=== PATIENT | male | born 1995 | race Caucasian/White ===

== ENCOUNTER 2019-02-09 06:01 | Day surgery (SDC) | payer BC, SELFPAY ==
--- NOTE | 2019-02-08 17:46 | HP.PCM_ITS ---
History and Physical Date of Admission: 02/09/19 Patient returns, 23-year-old male who is trying to conceive child with his partner. He was found to have significant varicocele's in the left testicle. He has significantly a large varicocele the left testicle. He underwent a semen analysis which demonstrated good sperm count with .2 million sperm but poor morphology. Today we talked about the possibility of proceeding with varicocele ectomy to improve his sperm quality which may improve his chances of spontaneous dignity with his . The other option discussed was seen a fertility specialist. 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 Smoking cessation counseling was provided. Does not use smokeless tobacco. Has never drank. Does not use drugs. Drinks 4+ caffeinated drinks per day. Has not had a blood transfusion. 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 - BMI Counseling was provided. PHYSICAL EXAMINATION: Scrotum: No lesions. No edema. No cysts. No warts. Epididymides: Right: no spermatocele, no masses, no cysts, no tenderness, no induration, no enlargement. Left: no spermatocele, no masses, no cysts, no tenderness, no induration, no enlargement. Testes: Lg varicocele - Gr III left testis. No tenderness, no swelling, no enlargement left testis. No tenderness, no swelling, no enlargement right testis. Normal location left testis. Normal location right testis. No mass, no cyst, no hydrocele left testis. No mass, no cyst, no varicocele, no hydrocele right testis. Urethral Meatus: Normal size. No lesion, no wart, no discharge, no polyp. Normal location. Penis: Circumcised, no warts, no cracks. No dorsal Peyronie's plaques, no left corporal Peyronie's plaques, no right corporal Peyronie's plaques, no scarring, no warts. No balanitis, no meatal stenosis. MULTI-SYSTEM PHYSICAL EXAMINATION: Constitutional: Well-nourished. No physical deformities. Normally developed. Good grooming. Neurologic / Psychiatric: Oriented to time, oriented to place, oriented to person. No depression, no anxiety, no agitation. Gastrointestinal: No mass, no tenderness, no rigidity, non obese abdomen. PAST DATA REVIEWED: Source Of History: Patient PROCEDURES: None ASSESSMENT: ICD-10 Details 1 : Scrotal varices - I86.1 PLAN: Letter(s): Created for Patient: Clinical Summary Notes: 23-year-old male with poor morphology on sperm count good sperm number he does have a very large left varicocele, we talked about the data supporting doing a varicocele ectomy and the possibility that this may improve his chances of conceiving child naturally. He's willing to proceed with a varicocelectomy, understands this may fail and he may need to proceed with more advanced fertility options. He scheduled for varicocelectomy all his questions were answered.
[2019-02-09] VITALS (9 sets, daily range): BP systolic 85–113; BP diastolic 51–67; PULSE 16–56; RESP 16; TEMP 36.4–36.8; O2SAT 95–100; BMI 23.6
[2019-02-09] MEDS: Cefazolin 2 GM in 0.9% Normal Saline 100 ML IV (07:32)
[2019-02-09] MEDS: Bupivacaine Mpf 0.5% 30 ML VIAL (08:40)
--- NOTE | 2019-02-09 08:53 | OP.PCM_ITS ---
Report of Operation Date of Procedure: 02/09/19 Pre-Operative Diagnosis: Left varicoceles Post-Operative Diagnosis: The same Surgery/Procedure Performed:: Left varicocelectomy inguinal approach Description of Surgical Findings:: 23-year-old male who has a partner and he and his partner been trying to conceive child now for 6 months we did a sperm count he has a good quality sperm count with 22 million sperm however his morphology was of poor quality he does have a very large symptomatic left varicocele so because of this working to proceed with a varicocelectomy in hopes of relieving the varicocele discomfort and also improving his fertility 23-year-old male taken back to the operating room at the smooth induction of anesthesia he was placed supine on the table the groin and testicles and penile area were shaved prepped and draped in usual sterile fashion. Pulled on the testicle cord to identify the location of the cord going into this inguinal canal made an incision about 3 cm above the cord and the skin. I then dissected through the skin superficial fat Sushant's fascia and then identified the spermatic cord the ilioinguinal nerve was identified running to the spermatic cord this was spared and pulled off to the side I then opened up the cord Plath passed a hemostat below the cord and then placed a [place] below the cord to help pull the cord up. Once the cord was held up then we proceeded with Doppler to identify the testicular artery and the cord which is identified with a with a nice whoosh sound. There was a lot of very large veins within the spermatic cord we also identified the vas deferens and there was a lot of lymphatics as well the nerves were spared that were seen within the cord I then went through them meticulously dissected out each vein one by one I would first dissect out the large vein put a past 3 oh tie silk underneath we would tie both ends we would Doppler the artery again to verify that the artery was still present and active and then once this was done then we cut the vein we did this piecemeal by piecemeal to the spermatic cord took about an hour at the end of the procedure I had ligated 90% of the veins within the cord the testicular artery was still present and had a nice Doppler signal. The vas deferens was uninjured. There was no bleeding from the cord. We had ligated all the major veins and the spermatic cord to perform the varicocelectomy this was done a sub-inguinal approach I did not open up the inguinal canal. After dissecting and ligating all the major dilated veins in the spermatic cord also Doppler to make sure that the testicular artery was still patent and Doppler signals were still present which was true I then pushed the cord back into the proper position we then closed Sushant's fascia over this and the subcuticular fat and then closed the skin with a running 4-0 Monocryl dressings and bandages were placed anesthesia was was reversed patient was taken back to PACU good condition he will follow-up in a few weeks for checkup. Type of Anesthesia:: General Drains: none - Admit VTE Documentation VTE Present on Admission: No VTE Mechan Device Prophylaxis: SCD's
--- NOTE | 2019-02-09 08:53 | PCM.DC.URO ---
Discharge Diet: Light diet - advance as tolerated Discharge Activity: May not drive while taking narcotic pain medications., May Shower - Family Call your doctor if your incision/area has: Continuous Slow Oozing - of the of the right, Sudden Increased Bleeding, Increased Pain/ Swelling, Increased Redness, Foul Smelling Discharge, Swelling at the incision site Call your doctor if you observe: Fever of 101 or Higher - No dysuria will be doing Suture Line Care: Avoid Pulling/Pushing, Avoid Pinching/Bending Allergies/Adverse Reactions: Allergies ANESTHETIC Allergy (Uncoded 02/02/19 14:42) Swelling Medications to take at Discharge Ascorbic Acid [Vitamin C] 500 mg PO DAILY 02/02/19 Multivitamins,Therapeutic [Multivitamin] 1 tablet PO DAILY 02/02/19 Cephalexin [Keflex] 500 mg PO Q8 #15 cap 02/09/19 Hydrocodone/Acetaminophen [[place] 5-325 Tablet] 1 ea PO Q4H PRN PRN 5 Days #14 tab 02/09/19 The following prescriptions were given: Hydrocodone/Acetaminophen [[place] 5-325 Tablet] 1 ea PO Q4H PRN PRN 5 Days #14 tab PRN Reason: Pain Cephalexin [Keflex] 500 mg PO Q8 #15 cap Primary Care Physician: Rock Pedraza MD [Primary Care Provider] - Test Results: Test results from this visit will be discussed in further detail at your follow-up appointment, if applicable. Please Follow Up With: Rusty Powell MD When: in 2 weeks, please call to make an appointment.
--- NOTE | 2019-02-09 08:57 | DCINST_ITS ---
Discharge Diet: Light diet - advance as tolerated Discharge Activity: May not drive while taking narcotic pain medications., May Shower - Family Call your doctor if your incision/area has: Continuous Slow Oozing - of the of the right, Sudden Increased Bleeding, Increased Pain/ Swelling, Increased Redness, Foul Smelling Discharge, Swelling at the incision site Call your doctor if you observe: Fever of 101 or Higher - No dysuria will be doing Suture Line Care: Avoid Pulling/Pushing, Avoid Pinching/Bending Allergies/Adverse Reactions: Allergies ANESTHETIC Allergy (Uncoded 02/02/19 14:42) Swelling Medications to take at Discharge Ascorbic Acid [Vitamin C] 500 mg PO DAILY 02/02/19 Multivitamins,Therapeutic [Multivitamin] 1 tablet PO DAILY 02/02/19 Cephalexin [Keflex] 500 mg PO Q8 #15 cap 02/09/19 Hydrocodone/Acetaminophen [[place] 5-325 Tablet] 1 ea PO Q4H PRN PRN 5 Days #14 tab 02/09/19 The following prescriptions were given: Hydrocodone/Acetaminophen [[place] 5-325 Tablet] 1 ea PO Q4H PRN PRN 5 Days #14 tab PRN Reason: Pain Cephalexin [Keflex] 500 mg PO Q8 #15 cap Primary Care Physician: Rock Pedraza MD [Primary Care Provider] - Test Results: Test results from this visit will be discussed in further detail at your follow- up appointment, if applicable. Please Follow Up With: Rusty Powell MD When: in 2 weeks, please call to make an appointment.
== END 2019-02-09 12:52 | disposition home or self-care (01) ==
LOC: SDC 06:01 → AC 06:03
PROVIDERS: Family Provider Family Medicine; PCP Family Medicine; Referring Provider Urology; Visit Provider Urology
PROC: (CPT 55530; principal; 2019-02-09 07:15)
DX: I86.1 Scrotal varices (principal)
CPT/HCPCS: 55530; J7120; J2405

== ENCOUNTER 2021-05-07 20:46 | Emergency (ER) | payer BC, SELFPAY ==
[2021-01-26 06:43] VITALS: BMI 24.5
[2021-05-07 20:47] VITALS: BP 162/79; PULSE 90; RESP 17; TEMP 36.6; O2SAT 95; BMI 23.1
--- NOTE | 2021-05-07 21:19 | RAD_ITS ---
INDICATION: trauma EXAMINATION/TECHNIQUE: X-RAY - RIGHT XR Foot Min 3 Views COMPARISON: None. FINDINGS: No acute fracture or malalignment. No blastic or lytic lesions. No degenerative changes are seen. The soft tissues are unremarkable. RAD/Foot min 3 Views IMPRESSION: No acute radiographic abnormalities. Electronically Signed: Ronald Cerna MD at 22:07 EDT Tel , Service support ,
--- NOTE | 2021-05-07 23:09 | ED.VIS.LOWEX ---
HPI History of Present Illness HPI Narrative: 25-year-old male no segment past medical or surgical history. Tetanus up-to-date. Was chopping wood today and slipped and hit his right medial ankle with the ax. Causing a laceration. No other complaints. Chief Complaint: Laceration Informant: patient Occured/Mechanism Mechanism/Context: Yes injury Onset/Context/Timing Onset: Today and Hours Timing: Continuous Quality of Pain: Sharp Current Severity: Mild Maximum Severity: Mild Associated Symptoms Associated Symptoms: Negative for Parasthesia, Weakness and Loss of Funtion Narrative Tetanus Immunization: 5-10 years Prior similar symptoms: No Recent Illness/Hospitalization: No PFSH PFSH Medical History Knee pain Home Medications NK 01/26/21 [History Last Taken Unknown] Allergy/AdvReac Type Severity Reaction Status Date / Time ANESTHETIC Allergy Swelling Uncoded 05/07/21 20:48 Surgical History Status post scrotal varicocelectomy Social History Smoking Status: Never smoker alcohol intake: never ROS ROS ED ROS Narrative Denies recent illness. Review of Systems ROS Unobtainable: Denies due to encephalopathy Constitutional Constitutional ED: Denies chills or fever(s) Eyes Eyes: Denies change in vision ENT ENT ED: Denies ear pain or sore throat Cardiovascular Cardiovascular: Denies chest pain Respiratory/Chest Respiratory/Chest: Denies dyspnea Gastrointestinal Gastrointestinal: Denies abdominal pain, diarrhea, nausea or vomiting Genitourinary Genitourinary ED: Denies dysuria Musculoskeletal Musculoskeletal: Denies myalgias Integumentary Denies rash Neurologic Neurologic: Denies headache(s) Psychiatric Psychiatric: Denies depression Endocrine Endocrinology: Denies polyuria Hematologic/Lymphatic Hematologic/Lymphatic: Denies easy bruising Allergic/Immunologic Allergic/Immunologic ED: Denies urticaria EXAM Physical Exam Narrative Exam Narrative: Well-appearing young male. No acute distress. Exam normal except right medial ankle has about a 1 inch laceration. It is red along the medial malleolus. There is no pulsatile bleeding. Mild oozing. Involve the skin and subcu tissue. No foreign body noted. Full range of motion to his right ankle. DP pulse intact. Foot neurovascularly intact. Able to wiggle all digits of his toes. This is medial to the right great toe and there is no involvement of the extensor tendon of the great toe. Const Vital Signs: 05/07/21 20:47 Temperature 97.9 F Temperature Source Temporal Pulse Rate 90 Respiratory Rate 17 Blood Pressure 162/79 H Blood Pressure Mean 106 Pulse Ox 95 Oxygen Delivery Method Room Air Positive well nourished and well developed General Appearance ED: well developed HEENT Reports moist mucous membranes normocephalic and atraumatic Eyes PERRL Neck full ROM and supple Chest Wall inspection of chest normal and palpation of chest normal Resp normal respiratory effort, no retractions and clear to auscultation bilaterally Cardio regular rate, regular rhythm and no murmurs GI non-tender, non-distended and no masses Auscultation: normoactive bowel sounds Palpation: soft; Negative for tender Back/Spine no CVA tenderness Extremity normal to inspection Extremity Narrative: 1 inch laceration right medial malleolus. No pulsatile bleeding. No foreign body noted. Wound explored. Involves the skin and subcu tissue. Neuro oriented x3 Sensorium / Orientation: alert, oriented to person, oriented to place and oriented to time Motor Exam: strength 5/5 throughout Psych mental status grossly normal Skin Rashes: no rashes Trauma: laceration MDM MDM MDM Narrative Medical decision making narrative: Right medial malleolus laceration. X-ray was obtained was unremarkable. No fracture. No foreign body. Laceration was repaired. Locally anesthetized with lidocaine. Cleaned with Shur-Clens. Washed and irrigated with saline. Explored. Closed using 3 simple interrupted 4-0 Ethilon sutures. Proper hemostasis wound closure obtained. Patient was instructed on wound care and to watch for any signs of infection. Radiography Diagnostic Testing: Radiology Impression Foot X-Ray 05/07/21 21:19 IMPRESSION: No acute radiographic abnormalities. Electronically Signed: Ronald Cerna MD at 22:07 EDT Tel , Service support , Right foot x-ray 3 views interpreted by myself and radiologist shows no acute abnormality. Procedures Lacerations Right medial malleolus laceration: Length: 0.98 in Depth: Sub Q Shape: Linear Prep: Sterile Conditions and Shure-Clens Laceration repair: Irrigated and Lidocaine Number of Sutures/Chloé: 3 Suture Information: Ethilon and 4-0 Discharge Plan Triage Chief Complaint: Laceration ED Provider: Jhon Rogers Dx/Rx/DC Orders Clinical Impression: Laceration of ankle, right Instructions: ED Laceration, Foot: All Closures Prescriptions: No Action NK RF: 0 Primary Care Provider: Rock Pedraza Referrals: Rock Pedraza MD [Primary Care Provider] - 10 Day for suture removal Activity Restrictions/Additional Instructions: Keep wound dry and clean. May shower but dry thoroughly when you are done. Apply antibiotic ointment twice a day. Clean twice a day. Tylenol and/or Motrin for pain. Ice and elevate. Watch for any signs of infection is seen return. Stitches should be removed in about 10 days. Disposition Disposition: Home, self care
== END 2021-05-07 23:42 | disposition home or self-care (01) ==
PROVIDERS: Emergency Provider Emergency Medicine; PCP Family Medicine
DX: S91.011A Laceration without foreign body, right ankle, initial encounter (principal); W27.0XXA Contact with workbench tool, initial encounter; Y93.9 Activity, unspecified; Y92.9 Unspecified place or not applicable
CPT/HCPCS: 12001; 73630; 99284

== ENCOUNTER → 2023-08-01 | Outpatient (CLI) | payer BC, SELFPAY ==
[2023-08-01 07:49] LABS: Anion Gap 1 (5-15); BUN 20 mg/dL (7-18); BUN/Creat Ratio 20.9 RATIO (10-20); Chloride 106 mmol/L (98-107); Cholesterol 109 mg/dL (200); Creatinine, Serum 0.96 mg/dL (0.70-1.30); EST Glomerular Filtration Rate 98 mL/min (>60); Est Glom Filt Rate - Afr Amer 119 mL/min (>60); Glucose 91 mg/dL (74-106); High Density Lipoprotein 49 mg/dL; Potassium 4.3 mmol/L (3.5-5.1); Sodium Level 140 mmol/L (136-145); Thyroid Stim Hormone (TSH) 2.78 uIU/mL (0.358-3.74); Triglycerides 56 mg/dL; Very Low Density Lipoprotein 11 mg/dL (5-40)
== END | disposition home or self-care (01) ==
LOC: LAB 06:49
PROVIDERS: PCP Family Medicine; Referring Provider Family Medicine; Visit Provider Family Medicine
DX: Z00.00 Encounter for general adult medical examination without abnormal findings (principal)
CPT/HCPCS: 36415; 80048; 80061; 84443

== ENCOUNTER → 2023-08-18 | Outpatient (CLI) | payer BC, SELFPAY ==
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
== END | disposition home or self-care (01) ==
LOC: MTRAD 14:37
PROVIDERS: PCP Family Medicine; Referring Provider Family Medicine; Visit Provider Family Medicine
DX: S22.31XA Fracture of one rib, right side, initial encounter for closed fracture (principal); V19.9XXA Pedal cyclist (driver) (passenger) injured in unspecified traffic accident, initial encounter
CPT/HCPCS: 71100

== ENCOUNTER → 2024-03-16 | Outpatient (CLI) | payer BC, SELFPAY ==
[2024-03-16 18:16] LABS: HIV - WCH Non-Reactive (Nonreactive); Hepatitis B Surface Antigen Non-Reactive (Nonreactive); Hepatitis C Antibody Non-Reactive (Nonreactive); Syphilis Antibodies Non-reactive
== END | disposition home or self-care (01) ==
LOC: LAB 16:14
PROVIDERS: PCP Family Medicine; Referring Provider Obstetrics & Gynecology Reproductive Endocrinology; Visit Provider Obstetrics & Gynecology Reproductive Endocrinology
DX: Z11.59 Encounter for screening for other viral diseases (principal); Z11.4 Encounter for screening for human immunodeficiency virus [HIV]; Z11.3 Encounter for screening for infections with a predominantly sexual mode of transmission
CPT/HCPCS: 36415; 86703; 86780; 86803; 87340

== ENCOUNTER → 2025-04-04 | Outpatient (CLI) | payer BC, SELFPAY ==
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
== END | disposition home or self-care (01) ==
LOC: MTRAD 16:25
PROVIDERS: PCP Family Medicine; Referring Provider Family Medicine; Visit Provider Family Medicine
DX: M54.9 Dorsalgia, unspecified (principal)
CPT/HCPCS: 72110